=== PATIENT | male | born 1995 | race Caucasian/White ===

== ENCOUNTER 2019-12-26 11:27 | Emergency (ER) | payer SELFPAY ==
--- NOTE | ~2019-12-26 | XR_ITS ---
EXAMINATION: XR finger 1st RT min 2V DATE: 12/26/2019 11:57 INDICATION: Right thumb pain post trauma to the first interphalangeal joint TECHNIQUE: Dorsal palmar, lateral and oblique views of the right first digit were obtained COMPARISON: None FINDINGS: Alignment is normal. No fracture. Joint spaces are normal. Soft tissues are unremarkable. IMPRESSION: 1. No osseous abnormality. Reviewed, dictated and finalized at location A. IMPRESSION: 1. No osseous abnormality.
[2019-12-26 11:56] VITALS: BP 149/98; PULSE 92; RESP 18; TEMP 36.7; O2SAT 98
--- NOTE | 2019-12-26 12:54 | ED.UPPEXIN ---
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 EYES: Denies visual changes, redness, discharge. ENT: Denies rhinorrhea, congestion, sore throat, otalgia. CARDIOVASCULAR: Denies chest pain, palpitations, edema. RESPIRATORY: Denies dyspnea, wheezing, cough GASTROINTESTINAL: Denies abdominal pain, nausea, vomiting, diarrhea. GENITOURINARY: Denies dysuria, hematuria, abnormal discharge SKIN: Denies rash or itching. NEUROLOGIC: Denies numbness, or focal weakness. PSYCHIATRIC: Denies anxiety or depression. Right thumb injury with difficulty moving PMFSH Family History Family History Other No acute medical problems Social History Social History Smoking status: Never smoker Alcohol intake: current Comments At time of signature, I agree with nursing past medical, surgical, social and family history. There is no relevant family history pertinent to the presenting complaint. Blood pressure is elevated at this visit which may be due to the nature of the visit. Follow-up with PCP Exam Narrative: Exam Narrative: GENERAL: This is a well-nourished, well-developed patient, in mild distress. HEAD: normocephalic, atraumatic. EYES: Sclera clear/white. Vision is grossly intact. EARS: External ears normal, . Hearing grossly intact. NOSE: External nose normal without nasal discharge, nares without redness, no rhinorrhea. THROAT: Mucous membranes moist, posterior pharynx NECK: Neck supple, CARDIOVASCULAR: Regular rate and rhythm without murmurs, gallops, or rubs. RESPIRATORY: Clear to auscultation. Breath sounds equal bilaterally. No wheezes, rales, or rhonchi. GASTROINTESTINAL: Abdomen soft, SKIN: warm, intact with no suspicious lesions or rash, good texture and turgor. NEURO: awake, alert, and oriented to person, place and time. There were no obvious focal neurologic abnormalities. Steady gait EXTREMITIES: Normal range of motion on L - poor finger opposition of L thumb to other fingers due to pain and swelling- 2+ radial pulse, skin pink and warm BACK: Nontender without deformity Course Course Emergency Course: Xray L habd - negative for fracture of thumb Finger splint applied, care given to patient Started on Naprosyn for pain; Referral to hand surgeon if finger not improved by Sunday Vital Signs Vital signs: Vital Signs Temperature 98.0 F 12/26/19 11:56 Pulse Rate 92 12/26/19 11:56 Respiratory Rate 18 12/26/19 11:56 Blood Pressure 149/98 H 12/26/19 11:56 Pulse Oximetry 98 12/26/19 11:56 Temperature 98.0 F 12/26/19 11:56 Pulse Rate 92 12/26/19 11:56 Respiratory Rate 18 12/26/19 11:56 Blood Pressure 149/98 H 12/26/19 11:56 Pulse Oximetry 98 12/26/19 11:56 MDM - Extremity Injury (Upper) Differential Diagnosis Differential diagnosis: Likely sprain and strain of wrist, dislocation of finger, fracture of hand and other Discharge Plan Discharge Clinical Impression: Crushing injury of right thumb Qualifiers: Encounter type: initial encounter Qualified Code(s): S67.01XA - Crushing injury of right thumb, initial encounter Patient Disposition: Home, Self-Care Condition: Stable Instructions: Crush Injury (ED) Additional Instructions: Use ice to thumb, use a fing
== END 2019-12-26 13:15 | disposition home or self-care (01) ==
PROVIDERS: Emergency Provider Nurse Practitioner; PCP Family Medicine
DX: S67.01XA Crushing injury of right thumb, initial encounter (principal); W23.0XXA Caught, crushed, jammed, or pinched between moving objects, initial encounter
CPT/HCPCS: 29130; 73140; 99213; G0463